=== PATIENT | male | born 1940 | race Caucasian/White ===

== ENCOUNTER 2022-03-27 21:19 | Inpatient (IN) | payer MEDICARE ==
[~2022-03-27] VITALS: Ht 177.8 cm; Wt 79.4 kg
[2022-03-27 21:47] LABS: BASOPHILS % 0.3 % (0.0-1.0); EOSINOPHILS % 0.7 % (0.0-6.0); HEMATOCRIT 38.8 % (38.2-49.6); HEMOGLOBIN 12.5 g/dL (14.0-18.0); LYMPHOCYTES # (AUTO) 0.4 (1.0-3.2); LYMPHOCYTES % 6.5 % (18.0-39.1); MEAN CORPUSCULAR HEMOGLOBIN 30.8 pg (28-32); MEAN CORPUSCULAR HGB CONC 32.2 g/dL (31-35); MEAN CORPUSCULAR VOLUME 95.6 fL (81-99); MONOCYTES # (AUTO) 0.8 (0.2-0.8); MONOCYTES % 12.2 % (4.4-11.3); NEUTROPHILS # (AUTO) 4.9 (2.1-6.9); PLATELET COUNT 200 x10e3/uL (140-360); RED BLOOD COUNT 4.06 x10e6/uL (4.3-5.7); RED CELL DISTRIBUTION WIDTH 15.1 % (11.7-14.4)
[2022-03-27 22:07] LABS: ALANINE AMINOTRANSFERASE 49 IU/L (0-55); ALBUMIN 3.3 g/dL (3.5-5.0); ALBUMIN/GLOBULIN RATIO 0.6 (0.8-2.0); ALKALINE PHOSPHATASE 71 IU/L (40-150); BLOOD UREA NITROGEN 26 mg/dL (7-26); BUN/CREATININE RATIO 21 (6-25); CALCIUM 8.8 mg/dL (8.4-10.2); CARBON DIOXIDE 25 mmol/L (22-29); CHLORIDE 101 mmol/L (98-107); CREATINE KINASE 45 IU/L (30-200); CREATININE, SERUM 1.24 mg/dL (0.72-1.25); GLUCOSE 190 mg/dL (74-118); SODIUM 134 mmol/L (136-145)
[2022-03-27] MEDS ORDERED: ACETAMINOPHEN 325 MG TAB PO PRN (23:30)
[2022-03-27] MEDS ORDERED: ONDANSETRON HCL INJ 2MG/ML 2ML 2 MG/ML VIAL IV PRN (23:30)
[2022-03-28] VITALS (7 sets, daily range): BP systolic 120–161; BP diastolic 75–86
[2022-03-28] MEDS: SODIUM CHLORIDE 0.9% 1000ML 1,000 ML IV SCH ×3 (00:41→23:26)
[2022-03-28 06:11] LABS: BASOPHILS % 0.4 % (0.0-1.0); EOSINOPHILS % 0.2 % (0.0-6.0); HEMATOCRIT 33.3 % (38.2-49.6); HEMOGLOBIN 10.8 g/dL (14.0-18.0); LYMPHOCYTES # (AUTO) 0.8 (1.0-3.2); LYMPHOCYTES % 16.8 % (18.0-39.1); MEAN CORPUSCULAR HEMOGLOBIN 30.9 pg (28-32); MEAN CORPUSCULAR HGB CONC 32.4 g/dL (31-35); MEAN CORPUSCULAR VOLUME 95.4 fL (81-99); MONOCYTES % 19.7 % (4.4-11.3); NEUTROPHILS % 62.7 % (38.7-80.0); PLATELET COUNT 199 x10e3/uL (140-360); RED BLOOD COUNT 3.49 x10e6/uL (4.3-5.7); RED CELL DISTRIBUTION WIDTH 14.7 % (11.7-14.4)
[2022-03-28] MEDS ORDERED: BISOPROLOL FUMAR5 MG PO (06:22)
[2022-03-28] MEDS ORDERED: BISOPROLOL FUMARATE PO SCH (06:40)
[2022-03-28 06:44] LABS: ALBUMIN 2.9 g/dL (3.5-5.0); ALBUMIN/GLOBULIN RATIO 0.6 (0.8-2.0); ANION GAP 11.7 mmol/L (8-16); CALCIUM 8.5 mg/dL (8.4-10.2); CREATININE, SERUM 1.11 mg/dL (0.72-1.25); POTASSIUM 3.7 mmol/L (3.5-5.1)
[2022-03-28 07:19] LABS: CREATINE KINASE 34 IU/L (30-200)
[2022-03-28] MEDS ORDERED: LORTAB 10 MG-3473 ML PO (11:39)
[2022-03-28] MEDS ORDERED: LOSARTAN POTAS100 MG PO (11:39)
[2022-03-28] MEDS ORDERED: MULTI-VITAMIN1 EACH PO (11:39)
[2022-03-28] MEDS ORDERED: ASPIRIN81 MG PO (11:39)
[2022-03-28] MEDS ORDERED: MOVE FREE ULTR1 EAC1 PO (11:39)
[2022-03-28] MEDS ORDERED: LEXAPRO10 MG PO (11:39)
[2022-03-28] MEDS ORDERED: ATORVASTATIN CA20 MG PO (11:39)
[2022-03-28] MEDS ORDERED: JANUMET 50-1,01 EACH PO (11:39)
[2022-03-28] MEDS ORDERED: HYDROCHLOROTHIA25 MG PO (11:39)
[2022-03-28] MEDS ORDERED: GABAPENTIN300 MG/6 M PO (11:39)
[2022-03-28] MEDS ORDERED: DEXTROSE 50% SYRINGE 50 ML IV PRN (12:15)
[2022-03-28 12:43] LABS: CHOL/HDL RATIO 4.5 (3.9-4.7)
[2022-03-28] MEDS: BISOPROLOL FUMARATE 10 MG TAB PO STA ×2 (12:47→12:49)
[2022-03-28 13:03] LABS: THYROID STIMULATING HORMONE 0.863 uIU/mL (0.350-4.940)
[2022-03-28 16:57] LABS: CREATINE KINASE 43 IU/L (30-200)
[2022-03-28] MEDS: INSULIN REGULAR, HUMAN 100 UNIT/1 ML SQ SCH ×2 (17:16→21:14)
[2022-03-28] MEDS: ATORVASTATIN 20 MG TAB PO SCH (21:04)
[2022-03-28] MEDS: BISOPROLOL FUMARATE 10 MG TAB PO SCH (21:06)
[2022-03-29] VITALS (7 sets, daily range): BP systolic 116–170; BP diastolic 72–95
[2022-03-29] MEDS: SODIUM CHLORIDE 0.9% 1000ML 1,000 ML IV SCH ×2 (06:04→15:34)
[2022-03-29] MEDS: INSULIN REGULAR, HUMAN 100 UNIT/1 ML SQ SCH ×4 (07:30→21:32)
[2022-03-29] MEDS ORDERED: BISOPROLOL FUMARATE 10 MG TAB PO SCH (09:00)
[2022-03-29] MEDS: MULTIVITAMINS/MINERALS TAB PO SCH (10:46)
[2022-03-29] MEDS: BISOPROLOL FUMARATE 10 MG TAB PO SCH ×2 (10:46→21:24)
[2022-03-29] MEDS: ESCITALOPRAM OXALATE 10 MG TAB PO SCH (10:46)
[2022-03-29] MEDS: ATORVASTATIN 20 MG TAB PO SCH (21:22)
[2022-03-30] VITALS (8 sets, daily range): BP systolic 119–175; BP diastolic 72–87
[2022-03-30] MEDS: SODIUM CHLORIDE 0.9% 1000ML 1,000 ML IV SCH ×3 (02:03→21:27)
[2022-03-30] MEDS: INSULIN REGULAR, HUMAN 100 UNIT/1 ML SQ SCH ×4 (07:30→20:30)
[2022-03-30] MEDS: MULTIVITAMINS/MINERALS TAB PO SCH (11:25)
[2022-03-30] MEDS: ESCITALOPRAM OXALATE 10 MG TAB PO SCH (11:25)
[2022-03-30] MEDS: BISOPROLOL FUMARATE 10 MG TAB PO SCH ×2 (11:27→21:26)
[2022-03-30] MEDS: HYDRALAZINE HCL 10 MG TAB PO SCH ×2 (14:00→21:25)
[2022-03-30] MEDS ORDERED: ATORVASTATIN 40 MG TAB PO SCH (21:00)
[2022-03-31] VITALS: BP 177/89
[2022-03-31 04:00] VITALS: BP 174/82
[2022-03-31] MEDS: HYDRALAZINE HCL 10 MG TAB PO SCH ×2 (04:34→14:06)
[2022-03-31 06:57] LABS: CLARITY,URINE CLEAR (CLEAR); COLOR,URINE YELLOW (YELLOW)
[2022-03-31 06:58] LABS: KETONES,URINE NEGATIVE (NEGATIVE); LEUKOCYTE ESTERASE ,URINE NEGATIVE (NEGATIVE); NITRITE,URINE NEGATIVE (NEGATIVE); PROTEIN,URINE DIPSTICK NEGATIVE (NEGATIVE); URINE UROBILINOGEN 0.2 mg/dL (0.2 - 1)
[2022-03-31 09:00] LABS: BASOPHILS % 0.2 % (0.0-1.0); EOSINOPHILS # (AUTO) 0.1 (0.0-0.4); EOSINOPHILS % 1.9 % (0.0-6.0); HEMATOCRIT 32.5 % (38.2-49.6); HEMOGLOBIN 10.8 g/dL (14.0-18.0); LYMPHOCYTES # (AUTO) 1.2 (1.0-3.2); LYMPHOCYTES % 26.3 % (18.0-39.1); MEAN CORPUSCULAR HGB CONC 33.2 g/dL (31-35); MEAN CORPUSCULAR VOLUME 93.4 fL (81-99); MONOCYTES # (AUTO) 0.6 (0.2-0.8); MONOCYTES % 12.9 % (4.4-11.3); NEUTROPHILS # (AUTO) 2.8 (2.1-6.9); NEUTROPHILS % 58.5 % (38.7-80.0); PLATELET COUNT 166 x10e3/uL (140-360); RED BLOOD COUNT 3.48 x10e6/uL (4.3-5.7); RED CELL DISTRIBUTION WIDTH 14.6 % (11.7-14.4)
[2022-03-31 09:15] LABS: ANION GAP 9.3 mmol/L (8-16); CALCIUM 7.8 mg/dL (8.4-10.2); CREATININE, SERUM 1.01 mg/dL (0.72-1.25); POTASSIUM 3.3 mmol/L (3.5-5.1)
[2022-03-31] MEDS: INSULIN REGULAR, HUMAN 100 UNIT/1 ML SQ SCH ×2 (09:30→12:14)
[2022-03-31] MEDS: BISOPROLOL FUMARATE 10 MG TAB PO SCH (09:31)
[2022-03-31] MEDS: ESCITALOPRAM OXALATE 10 MG TAB PO SCH (09:31)
[2022-03-31] MEDS: MULTIVITAMINS/MINERALS TAB PO SCH (09:31)
[2022-03-31] MEDS: SODIUM CHLORIDE 0.9% 1000ML 1,000 ML IV SCH (09:32)
[2022-03-31 09:48] VITALS: BP 155/85
[2022-03-31 10:47] VITALS: BP 155/85
[2022-03-31 13:51] VITALS: BP 168/92
[2022-03-31] MEDS ORDERED: ONDANSETRON HCL 4 MG ORAL DISINTEGRATING TAB PO PRN (15:00)
[2022-03-31 17:21] VITALS: BP 162/86
[2022-03-31] MEDS ORDERED: ZIPRASIDONE 20 MG VIAL IM ONE (21:00)
[2022-04-01] MEDS ORDERED: BALSAM PERU/CASTOR OIL 60 GM OINT...G. TP SCH (09:00)
== END 2022-03-31 18:47 | DRG 177 ==
LOC: ER 21:23 → ERHOLD 23:35 → MED/SURG2 03-28 00:18 → OBSVTOIN 03-29 07:45
PROVIDERS: ADMIT Internal Medicine; ATTEND Internal Medicine
PROC: 8E0ZXY6 Isolation (ICD-10-PCS; principal; 2022-03-29)
DX: U07.1 COVID-19 (principal); G93.41 Metabolic encephalopathy; N17.9 Acute kidney failure, unspecified; E87.1 Hypo-osmolality and hyponatremia; I10 Essential (primary) hypertension; E78.5 Hyperlipidemia, unspecified; F39 Unspecified mood [affective] disorder; E86.0 Dehydration; F03.90 Unspecified dementia, unspecified severity, without behavioral disturbance, psychotic disturbance, mood disturbance, and anxiety; F32.A Depression, unspecified; E11.40 Type 2 diabetes mellitus with diabetic neuropathy, unspecified
CPT/HCPCS: 36415; 70450; 71045; 80048; 80053; 80061; 81001; 82550; 82553; 82948; 83036; 84443; 84484; 85025; 93005; 94799; 97139; 99251; 99284; G0378; J1817; J7030